=== PATIENT | female | born 1985 | race Caucasian/White ===

== ENCOUNTER 2017-12-09 05:21 | Emergency (ER) | payer SELFPAY ==
[2017-12-09] MEDS ORDERED: Ketorolac 30 MG/ML SDV IVPUSH ONE (05:30)
[2017-12-09] MEDS ORDERED: Sodium Chloride 0.9% 1,000 ML ONE (05:36)
[2017-12-09] MEDS ORDERED: Ketorolac 30 MG/ML SDV ONE (05:36)
[2017-12-09] MEDS ORDERED: Sodium Chloride 0.9% 1,000 ML IV STA (05:53)
[2017-12-09] MEDS ORDERED: Sodium Chloride 0.9% 5 ML Syringe FLUSH PRN (05:53)
--- NOTE | 2017-12-09 06:20 | EDM.PDOC ---
ED HPI GENERAL MEDICAL PROBLEM - General Chief Complaint: Abdominal Pain Stated Complaint: lower abd pian Time Seen by Provider: 12/09/17 05:45 Source of Information: Reports: Patient History Limitations: Reports: No Limitations - History of Present Illness INITIAL COMMENTS - FREE TEXT/NARRATIVE: 32 YO WF presents to ER complaining of sudden onset of left lower abdominal pain which began around 10pm last night. Pt reports pain is crampy and sharp in character. Pt with history of ruptured ovarian cysts and kidney stones in the remote past. Pt denies any dysuria, frequency, hematuria or frequency. Pt denies any nausea/vomiting or fever/chills. Pt reports normal Bowel movements without constipation or diarrhea. Onset: Sudden Onset Date: 12/08/17 Onset Time: 22:00 Duration: Day(s): (1) Location: Reports: Abdomen, Back Quality: Reports: Sharp Severity: Moderate Improves with: Reports: None Worsens with: Reports: None Associated Symptoms: Reports: No Other Symptoms Treatments [employer]: Reports: NSAIDS Lower Abdomen Pain Score (Numeric/FACES): 8 - Related Data Allergies Allergy/AdvReac Type Severity Reaction Status Date / Time No Known Drug Allergies Allergy Cannot Verified 12/09/17 05:22 Remember Home Meds: Home Meds Etonogestrel [Nexplanon] 68 mg SQ ASDIRECTED 12/09/17 [History] PARoxetine [Paxil] 20 mg PO DAILY 12/09/17 [History] busPIRone [Buspar] 10 mg PO BID 12/09/17 [History] traMADol [Ultram] 50 mg PO Q6H PRN #15 tab 12/09/17 [Rx] Past Medical History - Past Health History Medical/Surgical History: Denies Medical/Surgical History [employer] History: Reports: Other OB/BYN History: 2 currently - Past Surgical History Female Surgical History: Reports: Section Social & Family History - Family History Family Medical History: Noncontributory - Tobacco Use Smoking Status *Q: Never Smoker Second Hand Smoke Exposure: No - Caffeine Use Caffeine Use: Reports: None - Recreational Drug Use Recreational Drug Use: No ED ROS GENERAL - Review of Systems Review Of Systems: See Below Constitutional: Reports: No Symptoms HEENT: Reports: No Symptoms Respiratory: Reports: No Symptoms Cardiovascular: Reports: No Symptoms Endocrine: Reports: No Symptoms GI/Abdominal: Reports: Abdominal Pain : Reports: No Symptoms Musculoskeletal: Reports: No Symptoms Skin: Reports: No Symptoms Neurological: Reports: No Symptoms Psychiatric: Reports: No Symptoms Hematologic/Lymphatic: Reports: No Symptoms Immunologic: Reports: No Symptoms ED EXAM, GI/ABD - Physical Exam Exam: See Below Exam Limited By: No Limitations General Appearance: Alert, WD/WN, Mild Distress Head: Atraumatic, Normocephalic Neck: Normal Inspection, Supple, Non-Tender, Full Range of Motion Respiratory/Chest: No Respiratory Distress, Lungs Clear, Normal Breath Sounds, No Accessory Muscle Use, Chest Non-Tender Cardiovascular: Normal Peripheral Pulses, Regular Rate, Rhythm, No Edema, No Gallop, No JVD, No Murmur, No Rub GI/Abdominal Exam: Normal Bowel Sounds, Soft, No Organomegaly, No Distention, No Abnormal Bruit, No Mass, Pelvis Stable, Tender (LLQ) Back Exam: CVA Tenderness (L) Extremities: Normal Inspection, Normal Range of Motion, Non-Tender, Normal Capillary Refill, No Pedal Edema Neurological: Alert, Oriented, CN II-XII Intact, Normal Cognition, Normal Gait, Normal Reflexes, No Motor/Sensory Deficits Psychiatric: Normal Affect, Normal Mood Skin Exam: Warm, Dry, Intact, Normal Color, No Rash Lymphatic: No Adenopathy Course - Vital Signs Last Recorded V/S: Last Vital Signs Temp 37.1 C 12/09/17 06:25 Pulse 71 12/09/17 07:08 Resp 20 12/09/17 07:08 BP 105/62 12/09/17 07:08 Pulse Ox 94 L 12/09/17 07:08 - Orders/Labs/Meds Orders: Active Orders 24 hr Category Date Time Status Abdomen Pelvis wo Cont [CT] Stat Exams 12/09/17 06:18 Taken Sodium Chloride 0.9% [Syrex Flush] Med 12/09/17 05:53 Active 5 ml FLUSH Q8HR PRN Saline Lock Insert [OM.PC] Stat Oth 12/09/17 05:53 Ordered Medication Orders Sodium Chloride (Syrex Flush) 5 ml FLUSH Q8HR PRN PRN Reason: Keep Vein Open Labs: Laboratory Tests 12/09/17 12/09/17 12/09/17 Range/Units 05:45 05:45 06:15 WBC 5.7 (5.0-10.0) 10^3/uL RBC 4.54 (3.80-5.50) 10^6/uL Hgb 14.3 (12.0-16.0) g/dL Hct 42.5 (37.0-47.0) % MCV 93.8 H (82.0-92.0) fL MCH 31.5 H (27.0-31.0) pg MCHC 33.6 (32.0-36.0) g/dL RDW 11.5 (11.5-14.5) % Plt Count 252 (150-300) 10^3/uL MPV 7.6 (7.4-10.4) fL Neut % (Auto) 53.8 (50.0-70.0) % Lymph % (Auto) 32.7 (20.0-40.0) % [place] % (Auto) 8.8 H (2.0-8.0) % Eos % (Auto) 2.8 (1.0-3.0) % Baso % (Auto) 1.9 H (0.0-1.0) % Neut # (Auto) 3.0 (2.5-7.0) 10^3/uL Lymph # (Auto) 1.9 (1.0-4.0) 10^3/uL [place] # (Auto) 0.5 (0.1-0.8) 10^3/uL Eos # (Auto) 0.2 (0.1-0.3) 10^3/uL Baso # (Auto) 0.1 (0.0-0.1) 10^3/uL Sodium 145 (136-145) mmol/L Potassium 3.5 (3.3-5.3) mmol/L Chloride 109 (98-115) mmol/L Carbon Dioxide 20.8 L (21.0-32.0) mmol/L BUN 17 (6-25) mg/dL Creatinine 0.72 (0.51-1.17) mg/dL Est Cr Clr Drug Dosing 4.09 mL/min Estimated GFR (MDRD) > 60 mL/min Glucose 95 (70-110) mg/dL Calcium 8.6 L (8.7-10.3) mg/dL Total Bilirubin 1.2 H (0.2-1.0) mg/dL AST 13 L (15-37) U/L ALT 18 (12-78) U/L Alkaline Phosphatase 62 (46-116) IU/L Total Protein 7.0 (6.4-8.2) g/dL Albumin 4.04 (3.00-4.80) g/dL HCG, Qual Negative (NEGATIVE) Specimen Type Urincc Urine Color Yellow (YELLOW) Urine Appearance Slightly cloudy H (CLEAR) Urine pH 5.5 (5.0-9.0) Ur Specific [place] >= 1.030 (1.005-1.030) Urine Protein 30 H (NEGATIVE) mg/dL Urine Glucose (UA) Negative (NEGATIVE) mg/dL Urine Ketones Negative (NEGATIVE) mg/dL Urine Occult Blood Negative (NEGATIVE) Urine Nitrite Negative (NEGATIVE) Urine Bilirubin Small H (NEGATIVE) Urine Urobilinogen 0.2 (0.2-1.0) E.U./dL Ur Leukocyte Esterase Negative (NEGATIVE) Urine RBC 0-5 /HPF Urine WBC 0-5 /HPF Ur Epithelial Cells Many H /LPF Amorphous Sediment Moderate H (0/HPF) /HPF Urine Bacteria Few (NONE TO FEW) /HPF Urine Mucus Many H (NEGATIVE) /LPF Meds: Medications Generic Name Dose Route Start Last Admin Trade Name Freq PRN Reason Stop Dose Admin Sodium Chloride 5 ml 12/09/17 05:53 Syrex Flush FLUSH Q8HR PRN Keep Vein Open Discontinued Medications Generic Name Dose Route Start Last Admin Trade Name Freq PRN Reason Stop Dose Admin Sodium Chloride Confirm 12/09/17 05:36 12/09/17 05:50 Normal Saline Administered 12/09/17 05:37 999 ml Dose Administration 1,000 mls @ as directed .ROUTE .STK-MED ONE Sodium Chloride 1,000 mls @ 1,000 mls/hr 12/09/17 05:53 12/09/17 06:41 Normal Saline IV 12/09/17 06:52 Not Given .BOLUS STA Ketorolac Tromethamine Confirm 12/09/17 05:36 12/09/17 05:45 Toradol Administered 12/09/17 05:37 30 mg Dose Administration 30 mg .ROUTE .STK-MED ONE Morphine Sulfate 4 mg 12/09/17 06:33 12/09/17 06:48 Morphine IVPUSH 01/18/18 06:34 4 mg ONETIME ONE Administration Morphine Sulfate 4 mg 12/09/17 07:24 Morphine IVPUSH 12/09/17 07:25 ONETIME ONE - Radiology Interpretation Free Text/Narrative:: CT abd/pelvis- 3cm right adenexal cyst; nonobstructing bilateral renal calculi Departure - Departure Time of Disposition: 07:56 Disposition: Home, Self-Care 01 Condition: Good Clinical Impression: Abdominal pain Qualifiers: Abdominal location: left lower quadrant Qualified Code(s): R10.32 - Left lower quadrant pain - Discharge Information Prescriptions: traMADol [Ultram] 50 mg PO Q6H PRN #15 tab PRN Reason: Pain Instructions: Abdominal Pain, Adult, [id number], Pain Medicine Instructions, [id number] Referrals: Ele Bacon, [facility] [Primary Care Provider] - Forms: ED Department Discharge - My Orders Last 24 Hours: My Active Orders 12/09/17 05:53 Sodium Chloride 0.9% [Syrex Flush] 5 ml FLUSH Q8HR PRN Saline Lock Insert [OM.PC] Stat 12/09/17 06:18 Abdomen Pelvis wo Cont [CT] Stat - Assessment/Plan Last 24 Hours: My Active Orders 12/09/17 05:53 Sodium Chloride 0.9% [Syrex Flush] 5 ml FLUSH Q8HR PRN Saline Lock Insert [OM.PC] Stat 12/09/17 06:18 Abdomen Pelvis wo Cont [CT] Stat Assessment:: 1. left side abdominal pain Plan: 1. follow up at clinic today or tomorrow for further evaluation and treatment 2. pelvic ultrasound as outpatient 3. pelvic exam as outpatient 4. motrin 800mg PO Q* x 5 days 5. ultram 50mg po Q6 PRN pain 6. return to ER as needed or for worsening symptoms
[2017-12-09 06:33] LABS: CHLORIDE,CL 109 mmol/L (98-115); SODIUM,NA 145 mmol/L (136-145)
[2017-12-09] MEDS: Morphine 4 MG/ML Syringe IVPUSH ONE ×2 (06:39→06:48)
[2017-12-09 07:09] VITALS: BP 105/62
[2017-12-09] MEDS ORDERED: Morphine 4 MG/ML Syringe IVPUSH ONE (07:24)
== END 2017-12-09 08:25 | disposition home or self-care (01) ==
LOC: KA.ED 05:21
DX: R10.32 Left lower quadrant pain (principal); Z79.899 Other long term (current) drug therapy
CPT/HCPCS: 36415; 74176; 80053; 81001; 84703; 85025; 96361; 96374; 96375; 96376; 99284; J1885; J2270; J7030